=== PATIENT | female | born 1960 | race Caucasian/White ===

== ENCOUNTER → 2018-02-02 | Outpatient (CLI) | payer OTHER | LOC: M EKG 12:37 | DX: G56.02 Carpal tunnel syndrome, left upper limb (principal); Z01.810 Encounter for preprocedural cardiovascular examination | CPT/HCPCS: 93005 ==

== ENCOUNTER → 2019-08-16 | Outpatient (CLI) | payer BC, OTHER ==
[~2019-08-16] MED LIST: ALTA1CAP2 PO; ATEN25TA PO; OMEP-218 PO; SYNT50TA PO
--- NOTE | 2019-08-22 17:16 | RADONC ---
RADIATION ONCOLOGY CONSULTATION NOTE DATE OF VISIT: 08/16/2019 This is a telemedicine visit. The patient was informed of the risks including security breech, technological failure, inability to perform a comprehensive physical exam which could delay or prevent an accurate diagnosis, and potential complications from treatment decisions rendered over a telemedicine platform. The patient understands and consented to the use of telehealth services phone only. CHART NUMBER: [id number] DIAGNOSIS: Right breast cancer. STAGE: 1B, pT2, pN2, aM0, grade 2, ER positive, ND positive, HER2/verónica negative. ECOG PERFORMANCE STATUS: Zero. CONSULTATION NOTE: Ms. Landry is a very pleasant 58-year-old white female with a diagnosis of what appears to be a pathologic stage IB, pT2, pN2, acM0, [place] grade 2, ER positive, ND positive, HER2/verónica negative infiltrating ductal carcinoma of the right breast, located in the 9 o'clock position, who is presenting to us today status post right modified radical mastectomy and left simple prophylactic mastectomy, as well as chemotherapy consisting of Adriamycin and Cytoxan followed by 12 cycles of Taxol, who is presenting to us today now 1 week post completion of her chemotherapy for discussion of postoperative radiation therapy in an attempt to increase the likelihood of achieving local control. HISTORY OF PRESENT ILLNESS: The patient was in her usual state of health until late October or early November of 2018 when she first noted a lump in the 9 o'clock position of her right breast. On 11/19/2018, the patient underwent mammography, which revealed a spiculated 3 cm mass in the 9 o'clock position of the right breast. Further ultrasound was undertaken and confirmed a 2.7 cm x 2.7 cm x 1.6 cm mass in the 9 o'clock position, highly suspicious for malignancy. On 01/25/2019, the patient underwent a left simple prophylactic mastectomy as well as a right modified radical mastectomy. Pathology revealed no significant histopathologic abnormalities in the left breast. The right breast, however, showed a 3.5 cm x 3.3 cm x 2.1 cm invasive moderately differentiated ductal carcinoma. The tumor extended to the superficial margin and involved the shaved margin taken from the nipple area (1.2 cm). The deep margin of resection was negative for malignancy. The nipple itself showed no significant histopathologic abnormalities. The tumor was overall grade 2, moderately differentiated. An initial sentinel lymph node excision showed 3/3 nodes were positive for metastatic disease, the largest focus of which was 10 mm. One of the three was a micrometastasis. Extranodal extension was identified. An additional seven lymph nodes were sampled of which one also was positive for metastatic carcinoma with extranodal extension. The tumor was noted to be estrogen receptor positive (100% strongly stained), progesterone receptor positive (80% moderate to strongly stained) and HER2/verónica negative (score 0). The patient did well post surgery and was seen at [facility] and subsequently underwent chemotherapy consisting of Adriamycin and Cytoxan followed by 12 weekly Taxol treatments. Her last chemotherapy was on August 04. She is now presenting to me for discussion of postoperative radiation therapy. PAST MEDICAL HISTORY: The patient's past medical history is positive for hypertension and hypothyroidism. She also had an appendectomy and hysterectomy. ALLERGIES: The patient has no known drug allergies. SOCIAL HISTORY: The patient does not smoke cigarettes. She drinks alcohol socially. FAMILY HISTORY: The patient's family history is positive for a mother with multiple cancer sites. REVIEW OF SYSTEMS: The patient's review of systems is noncontributory. She denies nausea, vomiting, fevers, chills, night sweats, diplopia, headaches, anxiety or depression, anorexia, weight loss, visual disturbances, chest pain, urinary or bowel difficulties, bone pain, or neurological problems. PHYSICAL EXAMINATION: Physical examination was deferred as per COVID-19 precautions. This was a telephone consultation. We will undertake physical examination at time of simulation. ASSESSMENT: Clearly the patient is a candidate for external beam radiation therapy and I have so informed her. I have discussed with the patient in detail the potential benefits as well as possible acute and chronic sequelae of external beam radiation therapy. We have discussed logistics of treatment planning, simulation and subsequent fractionated daily radiation treatments. We would usually begin radiation 3-4 weeks following chemotherapy, and I have scheduled her for initiation of treatment planning next week. Radiation treatments will begin subsequently. The patient has undertaken placement of expanders, and we will continue to monitor her surgical situation throughout therapy and prior to initiation of therapy. Thank you for allowing us to participate in the care of this very pleasant woman. If I could be of any further assistance or provide you with any information, please feel free to contact me at anytime. As always, warm regards. cc: Nadiya KorMD Shelbi mueller DO Prashant Upadhyaya, MD Jason White, MD [facility]OSPITALSusana
== END ==
LOC: M ONCR 10:15
PROVIDERS: ATTEND Radiology Radiation Oncology
DX: C50.911 Malignant neoplasm of unspecified site of right female breast (principal)

== ENCOUNTER → 2019-09-13 | Outpatient (RCR) | payer BC ==
--- NOTE | 2019-08-26 07:25 | RADONC ---
RADIATION ONCOLOGY SIMULATION NOTE DATE: 08/22/2019 CHART #: [id number] Ms. Landry was taken to the CT scan for CT simulation of her right chest wall field. CT was accomplished without difficulty or discomfort. Radiation treatment planning is underway and radiation treatments will begin subsequently. An immobilization device was created without difficulty or discomfort. It will be used throughout the course of treatment. I was physically present throughout the course of CT simulation.
--- NOTE | 2019-09-08 13:55 | RADONC ---
RADIATION ONCOLOGY DATE OF SERVICE: 09/05/2019 CHART NUMBER: [id number]. Ms. Landry carries the diagnosis of invasive ductal carcinoma of the right breast, stage IB, [id number], grade 2, ER positive, ME positive, HER2/verónica negative. She is a 58-year-old female and status post partial lumpectomy and mammoplasty of both breasts. So far, she has received a dose of 900 cGy in five fractions. SYSTEMIC REVIEW: She has no problem. She has no complaints. Denies headache dizziness or fatigue. PHYSICAL EXAMINATION: Mammoplasty of both breasts. There is mild skin changes. Mild erythematous changes on the right breast. no lumps in either breast. Discussed the skin care using corn starch in the inframammary area and some aloes on the right breast. Overall, she is tolerating treatment well, and treatment will continue as planned. AN
--- NOTE | 2019-09-15 10:46 | RADONC ---
RADIATION ONCOLOGY DATE OF SERVICE: 09/12/2019 Ms. Landry carries a diagnosis of invasive ductal carcinoma of the right breast Stage IB, ER/OH positive, HER2/verónica negative. She so far has received a dose of 1800 cGy in 10 fractions. She has no unusual side effects. SYSTEMIC REVIEW: She says she has discomfort in the right breast surgical site. She denies headache, dizziness, or fatigue. No neurological symptoms. PHYSICAL EXAMINATION: Noted mammoplasty of both breasts. There is mild to moderate skin erythema. No lumps in either breast. She is using corn starch in the inframammary area and aloe in the breasts. ASSESSMENT AND RECOMMENDATION: She is tolerating treatment very well and the radiation therapy will continue as planned. MTDD
== END ==
LOC: M ONCR 08-22 14:14
PROVIDERS: ATTEND Radiology Radiation Oncology
DX: C50.811 Malignant neoplasm of overlapping sites of right female breast (principal)

== ENCOUNTER 2019-10-05 15:21 | Outpatient (RCR) | payer BC ==
--- NOTE | 2019-09-27 16:51 | RADONC ---
RADIATION ONCOLOGY PROGRESS NOTE DATE: 09/19/2019 CHART NUMBER: [id number] Ms. Landry is presently at a dose of 2520 cGy to her right chest wall and is tolerating treatments quite well at this point with no significant complaints related to her radiation therapy. She is having no chest wall pain. The patient's review of systems is noncontributory. She denies nausea, vomiting, fevers, chills, night sweats, diplopia, headaches, anxiety or depression, anorexia, weight loss, visual disturbances, chest pain, urinary or bowel difficulties, bone pain, or neurological problems. PHYSICAL EXAMINATION: The patient's skin is in good condition with no evidence of moist or dry desquamation. The remainder of her physical exam remains unchanged. Ms. Landry is tolerating treatments quite well and radiation will continue as scheduled.
--- NOTE | 2019-10-03 17:25 | RADONC ---
RADIATION ONCOLOGY PROGRESS NOTE DATE: 10/03/2019 CHART NUMBER: [id number] PROGRESS NOTE: Ms. Landry is presently at a dose of 3600 centigrade to her right chest wall and axilla is tolerating treatments quite well at this point with no significant difficulties related to her radiation therapy. She has no significant breast or bone pain. REVIEW OF SYSTEMS: The patient's review of systems is noncontributory. Denies nausea, vomiting, fevers, chills, night sweats, diplopia, headaches, anxiety or depression, anorexia, weight loss, visual disturbances, chest pain, urinary or bowel difficulties, bone pain, or neurological problems. PHYSICAL EXAMINATION: The patient's skin is in good condition with no evidence of moist or dry desquamation. The remainder of her physical exam remains unchanged. Ms. Landry is tolerating treatments quite well and radiation will continue as scheduled.
== END 2019-10-14 ==
LOC: M ONCR 15:21
PROVIDERS: ATTEND Radiology Radiation Oncology
DX: C50.811 Malignant neoplasm of overlapping sites of right female breast (principal)